=== PATIENT | male | born 1965 | race Native Hawaiian/Other Pacific Islander ===

== ENCOUNTER 2017-03-07 00:07 | Emergency (ER) | payer BC ==
[~2017-03-07] VITALS: Ht 200.7 cm; Wt 99.3 kg
[2017-03-07 01:14] VITALS: BP 124/55; TEMP 97.9
== END 2017-03-07 01:20 | disposition home or self-care (01) ==
LOC: ED 00:07
DX: R11.2 Nausea with vomiting, unspecified (principal); R19.7 Diarrhea, unspecified
CPT/HCPCS: 96372; 99283; J2550